=== PATIENT | female | born 1970 | race Caucasian/White ===

== ENCOUNTER → 2017-07-19 | Outpatient (CLI) | payer OTHER | LOC: FIMAGING 14:28 | DX: Z12.31 Encounter for screening mammogram for malignant neoplasm of breast (principal) | CPT/HCPCS: G0202 ==

== ENCOUNTER → 2018-08-04 | Outpatient (CLI) | payer OTHER | LOC: FIMAGING 13:23 | DX: Z12.31 Encounter for screening mammogram for malignant neoplasm of breast (principal) ==

== ENCOUNTER → 2019-04-13 | Outpatient (CLI) | payer OTHER | LOC: FIMAGING 12:09 ==